=== PATIENT | male | born 1940 | race Caucasian/White ===

== ENCOUNTER 2016-04-19 23:30 | Emergency (ER) | payer OTHER, MEDICARE ==
[~2016-04-19 23:30] MED LIST: ASAB PO; CENTRUM PO; CO Q-10200 MG PO; FISH OIL1200 MG PO; GLUCCHONDR PO; JANTOVEN7.5 MG PO; LOP50 PO; NIASPAN500 PO; OS500+D PO; PRILO PO; PRIN20 PO; TOPXL50 PO; VIT C PO; VITAMIN B PO; VITAMIN D31000 UNIT PO; ZOCOR20 PO
[2016-07-06] MEDS ORDERED: ALLEGRA180 PO (13:55)
== END 2016-04-20 00:21 | disposition home or self-care (01) ==
LOC: ER 23:30
DX: M54.2 Cervicalgia (principal); I10 Essential (primary) hypertension; Z95.810 Presence of automatic (implantable) cardiac defibrillator; Z79.01 Long term (current) use of anticoagulants; Z79.82 Long term (current) use of aspirin; Z79.899 Other long term (current) drug therapy; V89.2XXA Person injured in unspecified motor-vehicle accident, traffic, initial encounter
CPT/HCPCS: 72125; 99284; A9270-GY